=== PATIENT | male | born 1980 ===

== ENCOUNTER 2021-12-23 19:57 | Emergency (ER) | payer SELFPAY | END 2021-12-23 20:49 | disposition left against medical advice (07) | LOC: EMS 20:03 | DX: Z04.3 Encounter for examination and observation following other accident (principal); Z53.21 Procedure and treatment not carried out due to patient leaving prior to being seen by health care provider; V49.9XXA Car occupant (driver) (passenger) injured in unspecified traffic accident, initial encounter; Y93.89 Activity, other specified; Y92.89 Other specified places as the place of occurrence of the external cause; Y99.8 Other external cause status ==